=== PATIENT | male | born 1970 | race Two or more races ===

== ENCOUNTER 2021-11-07 14:30 | Outpatient (CLI) | payer OTHER | END 2021-11-07 14:35 | disposition home or self-care (01) | LOC: PPH VACUNA 14:30 | PROVIDERS: ATTEND Emergency Medicine Pediatric Emergency Medicine | DX: Z23 Encounter for immunization (principal) ==

== ENCOUNTER 2022-09-25 09:48 | Emergency (ER) | payer OTHER ==
[~2022-09-25] VITALS: Ht 162.6 cm; Wt 86.2 kg
[2022-09-25] MEDS ORDERED: DICLOFENAC SODI75 MG PO (10:21)
[2022-09-25] MEDS ORDERED: NORFLEX100MG PO (10:21)
== END 2022-09-25 10:28 | disposition home or self-care (01) ==
LOC: ER 09:48
DX: M54.9 Dorsalgia, unspecified (principal)

== ENCOUNTER 2022-09-28 06:10 | Emergency (ER) | payer OTHER ==
[~2022-09-28] VITALS: Ht 162.6 cm; Wt 81.6 kg
[~2022-09-28 06:10] MED LIST: DICLOFENAC SODI75 MG PO; NORFLEX100MG PO
== END 2022-09-28 06:42 | disposition home or self-care (01) ==
LOC: ER 06:10
DX: M62.830 Muscle spasm of back (principal)

== ENCOUNTER 2022-11-01 10:30 | Outpatient (CLI) | payer OTHER | END 2022-11-01 10:40 | disposition home or self-care (01) | LOC: PPH VACUNA 10:30 | PROVIDERS: ATTEND Emergency Medicine Pediatric Emergency Medicine | DX: Z23 Encounter for immunization (principal) | CPT/HCPCS: 90686; G0008 ==

== ENCOUNTER 2023-01-02 11:52 | Outpatient (CLI) | payer OTHER ==
[2023-01-02 13:37] LABS: MYCOPLASMA PNEUMONIAE IGM NON REACTIVE (NO REACTIVE)
== END 2023-01-02 11:58 | disposition home or self-care (01) ==
LOC: LAB 11:52
PROVIDERS: ATTEND Emergency Medicine Pediatric Emergency Medicine
DX: B34.9 Viral infection, unspecified (principal); J22 Unspecified acute lower respiratory infection

== ENCOUNTER 2023-04-02 04:37 | Emergency (ER) | payer OTHER ==
[~2023-04-02] VITALS: Ht 327.7 cm; Wt 83.9 kg
[2023-04-02] MEDS ORDERED: PROMETHAZINE HCL 50 MG/ML AMPUL IM STA (04:55)
[2023-04-02] MEDS ORDERED: KETOROLAC TROMETHAMINE 30 MG VIAL IV STA (04:55)
[2023-04-02] MEDS ORDERED: SODIUM CHLORIDE 0.45 % 1,000 ML IV ONE (05:00)
[2023-04-02 06:30] LABS: HEMATOCRIT 43.9 % (39.0-48.0); HEMOGLOBIN 14.9 g/dL (13-16.00); MEAN CORPUSCULAR HEMOGLOBIN 29.5 pg (27.00-32.0); MEAN CORPUSCULAR HGB CONC 33.9 g/dl (32.0-36.0); PLATELET COUNT 309 K/uL (150-450); RED BLOOD COUNT 5.04 M/uL (4.00-6.00)
[2023-04-02 06:54] LABS: CALCIUM 9.1 mg/dL (8.5-10.1); CREATININE SERUM 1.37 mg/dL (0.70-1.30); POTASSIUM 4.23 mEq/L (3.5-5.1)
[2023-04-02 09:27] LABS: PH,URINE 5.5 (5.0-8.0); URINE APPEARANCE Clear; URINE BILIRRUBIN Negative (NEGATIVE); URINE BLOOD Negative; URINE COLOR Yellow; URINE GLUCOSE Negative (NEGATIVE); URINE LEUKOCYTE Negative; URINE NITRATE Negative; URINE PROTEIN Negative (NEGATIVE); URINE UROBILINOGEN 0.2 E.U./dl
[2023-04-02 09:32] LABS: URINE BACTERIA 12.5 uL (0.0-1933); URINE RBC 11.9 uL (0.0-20.8); URINE WBC 6.4 uL (0.0-23.2)
[2023-04-02] MEDS ORDERED: CEFTRIAXONE SODIUM 2,000 MG VIAL IV ONE (13:15)
== END 2023-04-02 13:50 | disposition home or self-care (01) ==
LOC: ER 04:37
PROVIDERS: General Practice
DX: R10.9 Unspecified abdominal pain (principal); N20.1 Calculus of ureter
CPT/HCPCS: 36415; 74176; 96365; 96372; 99283; J0696; J1885; J2550

== ENCOUNTER 2023-10-14 14:09 | Outpatient (CLI) | payer OTHER | END 2023-10-14 14:10 | disposition home or self-care (01) | LOC: LAB 14:09 | PROVIDERS: ATTEND Preventive Medicine Occupational Medicine | DX: A49.1 Streptococcal infection, unspecified site (principal); A02.9 Salmonella infection, unspecified; K62.89 Other specified diseases of anus and rectum ==

== ENCOUNTER 2024-01-16 11:28 | Outpatient (CLI) | payer OTHER | END 2024-01-16 11:38 | disposition home or self-care (01) | LOC: PPH VACUNA 11:28 | PROVIDERS: ATTEND Emergency Medicine Pediatric Emergency Medicine | DX: Z23 Encounter for immunization (principal) ==

== ENCOUNTER 2024-05-02 05:08 | Emergency (ER) | payer OTHER ==
[~2024-05-02] VITALS: Ht 162.6 cm; Wt 81.6 kg
[2024-05-02 08:55] LABS: HEMATOCRIT 45.5 % (39.0-48.0); HEMOGLOBIN 15.6 g/dL (13-16.00); MEAN CELL VOLUME 87.2 fL (80.0-100.00); MEAN CORPUSCULAR HGB CONC 34.4 g/dl (32.0-36.0); PLATELET COUNT 261 K/uL (150-450); RED BLOOD COUNT 5.21 M/uL (4.00-6.00); RED CELL DISTRIBUTION WIDTH 13.5 % (11.5-14.5)
[2024-05-02] MEDS ORDERED: ACETAMINOPHEN500 M1 PO (11:33)
[2024-05-02] MEDS ORDERED: OSEL75CA PO (11:33)
[2024-05-02] MEDS ORDERED: GILTUSS COUGH-118 M1 PO (11:33)
== END 2024-05-02 12:05 | disposition home or self-care (01) ==
LOC: ER 05:11
PROVIDERS: Preventive Medicine Public Health & General Preventive Medicine
DX: J10.1 Influenza due to other identified influenza virus with other respiratory manifestations (principal); Z20.822 Contact with and (suspected) exposure to COVID-19

== ENCOUNTER 2024-08-31 10:14 | Emergency (ER) | payer OTHER ==
[~2024-08-31] VITALS: Ht 162.6 cm; Wt 81.6 kg
[~2024-08-31 10:14] MED LIST changes: +ACETAMINOPHEN500 M1 PO; +GILTUSS COUGH-118 M1 PO; +OSEL75CA PO
[2024-08-31 14:15] LABS: BASO % 0.5 % (0.1-1.2); EOS # 0.09 (0.04-0.54); EOS % 0.9 % (0.7-7.0); LYMPH # 2.82 (1.18-3.74); LYMPH % 27.5 % (19.3-53.1); MEAN PLATELET VOLUME 9.70 fl (9.4-12.4); MONO # 0.77 (0.24-0.82); MONO % 7.5 % (4.7-12.5); NEUT # 6.50 (1.56-6.13); NEUT % 63.2 % (34.0-71.1); RED CELL DISTRIBUTION WIDTH 12.5 % (11.6-14.4)
[2024-08-31 14:20] LABS: URINE APPEARANCE Clear; URINE BILIRRUBIN Negative (NEGATIVE); URINE BLOOD Negative; URINE COLOR Dark Yellow; URINE GLUCOSE Negative (NEGATIVE); URINE KETONE Trace (NEGATIVE); URINE LEUKOCYTE Negative; URINE NITRATE Negative; URINE PROTEIN Trace (NEGATIVE); URINE UROBILINOGEN 1.0 E.U./dl
[2024-08-31 14:21] LABS: URINE BACTERIA 24.0 uL (0.0-1933); URINE EPITHELIAL CELLS 4.4 uL (0.0-38.8); URINE RBC 5.2 uL (0.0-20.8); URINE WBC 12.5 uL (0.0-23.2)
[2024-08-31 14:23] LABS: URINE CAST 0.73 uL (0.0-1.40)
[2024-08-31 14:59] LABS: ALT/SGPT 52.0 U/L (12-78); AST/SGOT 26.0 U/L (15-37); BILIRUBIN TOTAL 0.56 mg/dL (0.3-1.2); BUN CREA RATIO 12.0 (7.0-25.0); CREATININE SERUM 1.14 mg/dL (0.70-1.30); GFR 67.45; GLOBULINA 3.7 G/DL (2.4-3.5); GLUCOSE FASTING 94.0 mg/dL (65-100); OSMOLALITY SERUM 283.0 MOSM/KG (275-295)
[2024-08-31 15:15] LABS: COVID-19 AG NEGATIVE (NEGATIVE)
[2024-08-31] MEDS ORDERED: PEPCID AC20 MG PO (18:18)
[2024-08-31] MEDS ORDERED: SIMETHICONE125 M1 PO (18:18)
== END 2024-08-31 18:28 | disposition home or self-care (01) ==
LOC: ER 10:14
PROVIDERS: Preventive Medicine Public Health & General Preventive Medicine
DX: R10.32 Left lower quadrant pain (principal); R19.7 Diarrhea, unspecified; Z20.822 Contact with and (suspected) exposure to COVID-19
CPT/HCPCS: 36415; 74177; Q9965

== ENCOUNTER 2024-12-17 10:33 | Outpatient (CLI) | payer OTHER ==
[~2024-12-17 10:33] MED LIST changes: +PEPCID AC20 MG PO; +SIMETHICONE125 M1 PO
== END 2024-12-17 10:43 | disposition home or self-care (01) ==
LOC: PPH VACUNA 10:33
PROVIDERS: ATTEND Emergency Medicine Pediatric Emergency Medicine
DX: Z23 Encounter for immunization (principal)